=== PATIENT | female | born 1975 | race Caucasian/White ===

== ENCOUNTER 2018-09-24 15:03 | Inpatient (IN) ==
[2018-09-24 18:26] LABS: Basophils # 0.1 10*3/uL (0.0-0.2); Basophils % 0.9 % (0.0-0.8); Hemoglobin 12.9 GM/DL (12.0-16.0); Immature Granulocytes % 0.9 %; Immature Granulocytes Absolute 0.06 #; Lymphocytes # 1.1 10*3/uL (1.4-4.0); Lymphocytes % 15.8 % (21.3-54.2); Mean Corpuscular HGB Conc 32.3 GM/DL (32-36); Mean Corpuscular Volume 91.7 FL (87-102); Mean Platelet Volume 8.8 FL (9.6-12.0); Monocytes % 10.3 % (1.7-12.7); Neutrophils % 72.1 % (38.7-73.9); Platelet Count 475 T/CUMM (130-400); Red Blood Count 4.36 MC/CUMM (3.8-5.5); Red Cell Distribution Width 16.1 % (9.3-17.3); White Blood Count 6.7 T/CUMM (4-12)
[2018-09-24] MEDS ORDERED: ONDANSETRON 4 MG/2 ML VIAL ONE (18:30)
[2018-09-24] MEDS ORDERED: HYDROmorphone 2 MG/1 ML VIAL ONE (18:31)
[2018-09-24] MEDS ORDERED: ONDANSETRON 4 MG/2 ML VIAL IV STA (18:47)
[2018-09-24] MEDS ORDERED: HYDROmorphone 2 MG/1 ML VIAL IV STA (18:47)
[2018-09-24 18:48] LABS: Calcium 8.7 MG/DL (8.5-10.1); Osmolality,Calculated 273.5 MOS/KG (273-304)
[2018-09-24] MEDS ORDERED: LACTATED RINGERS 500 ML IV ONE (18:49)
[2018-09-24] MEDS ORDERED: ACETAMINOPHEN 325 MG TABLET PO PRN (20:08)
[2018-09-24] MEDS ORDERED: DOCUSATE SODIUM 100 MG CAPSULE PO PRN (20:08)
[2018-09-24 20:23] LABS: PT Patient Result 10.4 SECS
[2018-09-24] MEDS: SODIUM CHLORIDE 0.9% 1,000 ML IV SCH (20:30)
[2018-09-24] MEDS ORDERED: LORazepam 2 MG/1 ML VIAL IV PRN (20:49)
[2018-09-24] MEDS ORDERED: DEXTROSE 50% 25 GM/50 ML SYRINGE IV ONE (22:02)
[2018-09-24] MEDS ORDERED: DEXTROSE 50% 25 GM/50 ML VIAL IV ONE (22:07)
[2018-09-24] MEDS: POTASSIUM CHLORIDE RIDER 10 MEQ in PREMIX 1 EACH IV SCH (23:40)
[2018-09-24] MEDS: ENOXAPARIN 40 MG/0.4 ML SYRINGE SUBCUT SCH (23:41)
[2018-09-24] MEDS: PANTOPRAZOLE 40 MG VIAL IV SCH (23:41)
[2018-09-24] MEDS: MORPHINE 4 MG/1 ML VIAL IV PRN (23:42)
[2018-09-24] MEDS: ONDANSETRON 4 MG/2 ML VIAL IV PRN (23:45)
[2018-09-25] MEDS ORDERED: POTASSIUM CHLORIDE RIDER 10 MEQ in PREMIX 1 EACH IV SCH (03:30)
[2018-09-25] MEDS: POTASSIUM CHLORIDE RIDER 10 MEQ in PREMIX 1 EACH IV SCH (03:48)
[2018-09-25 03:56] LABS: Basophils # 0.1 10*3/uL (0.0-0.2); Hematocrit 37.1 VOL% (35.7-47.0); Hemoglobin 11.8 GM/DL (12.0-16.0); Immature Granulocytes % 0.7 %; Immature Granulocytes Absolute 0.05 #; Lymphocytes # 1.3 10*3/uL (1.4-4.0); Lymphocytes % 17.9 % (21.3-54.2); Mean Corpuscular HGB Conc 31.8 GM/DL (32-36); Mean Corpuscular Volume 93.2 FL (87-102); Mean Platelet Volume 9.5 FL (9.6-12.0); Monocytes % 10.7 % (1.7-12.7); Neutrophils % 69.7 % (38.7-73.9); Platelet Count 447 T/CUMM (130-400); Red Blood Count 3.98 MC/CUMM (3.8-5.5); Red Cell Distribution Width 16.3 % (9.3-17.3); White Blood Count 7.2 T/CUMM (4-12)
[2018-09-25] MEDS: MORPHINE 4 MG/1 ML VIAL IV PRN (03:56)
[2018-09-25 04:17] LABS: Alanine Aminotransferase 20 U/L (13-56); Albumin 2.5 G/DL (3.4-5.0); Alkaline Phosphatase 60 U/L (45-117); Aspartate Amino Transferase 22 U/L (0-37); Bilirubin,Total < 0.39 MG/DL (0.2-1.0); Blood Urea Nitrogen 10 MG/DL (7-18); Calcium 7.9 MG/DL (8.5-10.1); Glucose 63 MG/DL (74-106); Osmolality,Calculated 277.3 MOS/KG (273-304); Total Protein 5.7 G/DL (6.4-8.3)
[2018-09-25] MEDS: SODIUM CHLORIDE 0.9% 1,000 ML IV SCH ×3 (06:23→19:48)
[2018-09-25] MEDS: ONDANSETRON 4 MG/2 ML VIAL IV PRN ×4 (08:09→23:28)
[2018-09-25] MEDS: PANTOPRAZOLE 40 MG VIAL IV SCH ×2 (08:26→20:47)
[2018-09-25] MEDS ORDERED: fentaNYL 12 MCG/HR PATCH TRANSDERM SCH (09:00)
[2018-09-25] MEDS ORDERED: PANTOPRAZOLE 40 MG TABLET PO SCH (09:00)
[2018-09-25 10:24] LABS: Eosinophils,Pleural Fluid 2 %; Lymphocytes,Pleural Fluid 57 %; Monocytes,Pleural Fluid 11 %; Neutrophils,Pleural Fluid 30 %
[2018-09-25 10:25] LABS: RBC,Pleural Fluid 485 T/CUMM
[2018-09-25] MEDS: HYDROmorphone 2 MG/1 ML VIAL IV PRN ×6 (10:29→23:10)
[2018-09-25 22:16] LABS: Apearance,Urine CLEAR (Clear); Bilirubin,Urine Negative (Negative); Blood, Urine Negative (Negative); Glucose,Urine (UA) Negative (Negative); Hyaline Casts,Urine 5 /LPF (0-3); Ketones,Urine 80 mg/dL (Negative); Mucus,Urine Many /LPF (Occasional); Nitrite,Urine Negative (Negative); Protein,Urine Negative; Urine Color Yellow (Yellow); Urine Specific Gravity 1.019 (1.001-1.035); Urine Urobilinogen < 2.0 EU/DL (0.2-1.0); WBC,Urine 1 /HPF (0-6)
[2018-09-26] MEDS: HYDROmorphone 2 MG/1 ML VIAL IV PRN ×5 (01:50→19:41)
[2018-09-26] MEDS: ONDANSETRON 4 MG/2 ML VIAL IV PRN ×3 (04:23→19:41)
[2018-09-26] MEDS: LACTATED RINGERS 1,000 ML IV SCH (08:35)
[2018-09-26] MEDS: PANTOPRAZOLE 40 MG VIAL IV SCH ×2 (08:37→20:41)
[2018-09-26] MEDS ORDERED: PROPOFOL 200 MG/20 ML VIAL IV ONE (09:00)
[2018-09-26] MEDS ORDERED: LIDOCAINE 2% 5 ML VIAL ONE (09:00)
[2018-09-26] MEDS: fentaNYL 25 MCG/HR PATCH TRANSDERM SCH (10:44)
[2018-09-26] MEDS: SUCRALFATE 1 GM/10 ML UDCUP PO SCH ×3 (11:54→20:41)
[2018-09-26] MEDS: SODIUM CHLORIDE 0.9% 1,000 ML IV SCH ×2 (13:31→13:59)
[2018-09-27] MEDS: ONDANSETRON 4 MG/2 ML VIAL IV PRN (00:27)
[2018-09-27] MEDS: HYDROmorphone 2 MG/1 ML VIAL IV PRN ×4 (00:28→21:16)
[2018-09-27 05:55] LABS: Basophils # 0.1 10*3/uL (0.0-0.2); Basophils % 0.5 % (0.0-0.8); Hematocrit 33.7 VOL% (35.7-47.0); Hemoglobin 10.6 GM/DL (12.0-16.0); Immature Granulocytes % 0.6 %; Immature Granulocytes Absolute 0.06 #; Lymphocytes # 1.2 10*3/uL (1.4-4.0); Lymphocytes % 12.3 % (21.3-54.2); Mean Corpuscular HGB Conc 31.5 GM/DL (32-36); Mean Corpuscular Volume 93.6 FL (87-102); Mean Platelet Volume 9.9 FL (9.6-12.0); Monocytes % 9.8 % (1.7-12.7); Neutrophils % 76.8 % (38.7-73.9); Platelet Count 405 T/CUMM (130-400); Red Cell Distribution Width 16.1 % (9.3-17.3); White Blood Count 9.6 T/CUMM (4-12)
[2018-09-27 06:15] LABS: Calcium 6.5 MG/DL (8.5-10.1); Osmolality,Calculated 276.3 MOS/KG (273-304)
[2018-09-27] MEDS: SUCRALFATE 1 GM/10 ML UDCUP PO SCH ×4 (07:46→21:16)
[2018-09-27] MEDS: SODIUM CHLORIDE 0.9% 1,000 ML IV SCH (10:09)
[2018-09-27] MEDS: LACTATED RINGERS 1,000 ML IV SCH (10:10)
[2018-09-27] MEDS ORDERED: POTASSIUM CHLORIDE 20 MEQ/15 ML UDCUP PO ONE (10:10)
[2018-09-27] MEDS ORDERED: MEROPENEM 500 MG in SODIUM CHLORIDE 0.9% 100 ML IV SCH (10:30)
[2018-09-27] MEDS: HYDROmorphone 2 MG TABLET PO PRN ×2 (11:28→16:57)
[2018-09-27] MEDS: PANTOPRAZOLE 40 MG VIAL IV SCH ×2 (11:31→21:15)
[2018-09-27] MEDS: ENOXAPARIN 40 MG/0.4 ML SYRINGE SUBCUT SCH (21:14)
[2018-09-28] MEDS: HYDROmorphone 2 MG TABLET PO PRN ×3 (00:05→08:36)
[2018-09-28 04:57] LABS: Basophils # 0.1 10*3/uL (0.0-0.2); Basophils % 0.5 % (0.0-0.8); Hematocrit 35.7 VOL% (35.7-47.0); Hemoglobin 11.2 GM/DL (12.0-16.0); Immature Granulocytes % 0.8 %; Immature Granulocytes Absolute 0.08 #; Lymphocytes # 1.3 10*3/uL (1.4-4.0); Lymphocytes % 12.8 % (21.3-54.2); Mean Corpuscular HGB Conc 31.4 GM/DL (32-36); Mean Corpuscular Volume 92.5 FL (87-102); Mean Platelet Volume 9.5 FL (9.6-12.0); Monocytes % 7.6 % (1.7-12.7); Neutrophils % 78.3 % (38.7-73.9); Platelet Count 426 T/CUMM (130-400); Red Blood Count 3.86 MC/CUMM (3.8-5.5); Red Cell Distribution Width 16.1 % (9.3-17.3); White Blood Count 10.1 T/CUMM (4-12)
[2018-09-28 05:28] LABS: Calcium 7.6 MG/DL (8.5-10.1); Osmolality,Calculated 272.5 MOS/KG (273-304)
[2018-09-28] MEDS: PANTOPRAZOLE 40 MG VIAL IV SCH ×2 (08:36→20:58)
[2018-09-28] MEDS: SUCRALFATE 1 GM/10 ML UDCUP PO SCH ×4 (08:36→20:53)
[2018-09-28] MEDS ORDERED: METHYLNALTREXONE 12 MG/0.6 ML VIAL SUBCUT ONE (11:43)
[2018-09-28] MEDS: FUROSEMIDE 40 MG TABLET PO SCH (12:47)
[2018-09-28] MEDS: HYDROmorphone 2 MG/1 ML VIAL IV PRN ×3 (16:29→20:53)
[2018-09-28] MEDS: ENOXAPARIN 40 MG/0.4 ML SYRINGE SUBCUT SCH (20:53)
[2018-09-28] MEDS: MEMANTINE 5 MG TABLET PO SCH (21:02)
[2018-09-29] MEDS: HYDROmorphone 2 MG/1 ML VIAL IV PRN ×6 (01:24→21:45)
[2018-09-29] MEDS: ANASTROZOLE 1 MG TABLET PO SCH (08:35)
[2018-09-29] MEDS: MEMANTINE 5 MG TABLET PO SCH ×2 (08:35→23:26)
[2018-09-29] MEDS: SUCRALFATE 1 GM/10 ML UDCUP PO SCH ×4 (08:35→23:26)
[2018-09-29] MEDS: fentaNYL 25 MCG/HR PATCH TRANSDERM SCH (08:36)
[2018-09-29] MEDS: FUROSEMIDE 40 MG TABLET PO SCH (08:36)
[2018-09-29] MEDS: PANTOPRAZOLE 40 MG VIAL IV SCH ×2 (08:41→19:59)
[2018-09-29] MEDS: ONDANSETRON 4 MG/2 ML VIAL IV PRN (19:53)
[2018-09-29] MEDS: ENOXAPARIN 40 MG/0.4 ML SYRINGE SUBCUT SCH (19:59)
[2018-09-30] MEDS: HYDROmorphone 2 MG/1 ML VIAL IV PRN ×7 (01:46→22:39)
[2018-09-30] MEDS: ONDANSETRON 4 MG/2 ML VIAL IV PRN ×2 (01:48→17:55)
[2018-09-30] MEDS ORDERED: MORPHINE 4 MG/1 ML VIAL IV PRN (08:31)
[2018-09-30] MEDS: MEMANTINE 5 MG TABLET PO SCH ×2 (08:44→20:22)
[2018-09-30] MEDS: ANASTROZOLE 1 MG TABLET PO SCH (08:44)
[2018-09-30] MEDS: PANTOPRAZOLE 40 MG VIAL IV SCH ×2 (08:44→20:22)
[2018-09-30] MEDS: SUCRALFATE 1 GM/10 ML UDCUP PO SCH ×4 (08:44→20:21)
[2018-09-30] MEDS: ALBUTEROL/IPRATROPIUM 3 ML NEB RESP TX PRN ×2 (08:45→12:45)
[2018-09-30] MEDS: FUROSEMIDE 40 MG/4 ML VIAL IV SCH (08:58)
[2018-09-30 10:18] LABS: Basophils # 0.1 10*3/uL (0.0-0.2); Basophils % 0.5 % (0.0-0.8); Hematocrit 37.9 VOL% (35.7-47.0); Hemoglobin 11.8 GM/DL (12.0-16.0); Immature Granulocytes % 0.9 %; Immature Granulocytes Absolute 0.13 #; Lymphocytes % 6.4 % (21.3-54.2); Mean Corpuscular HGB Conc 31.1 GM/DL (32-36); Mean Corpuscular Volume 92.9 FL (87-102); Mean Platelet Volume 9.4 FL (9.6-12.0); Monocytes % 4.8 % (1.7-12.7); Neutrophils % 87.4 % (38.7-73.9); Platelet Count 448 T/CUMM (130-400); Red Blood Count 4.08 MC/CUMM (3.8-5.5); Red Cell Distribution Width 16.3 % (9.3-17.3); White Blood Count 15.1 T/CUMM (4-12)
[2018-09-30 10:43] LABS: Calcium 7.5 MG/DL (8.5-10.1); Osmolality,Calculated 277.3 MOS/KG (273-304)
[2018-09-30] MEDS: SODIUM CHLORIDE 0.9% 1,000 ML IV SCH (11:22)
[2018-09-30] MEDS: cefTRIAXone 1,000 MG in SYRINGE 1 EACH IV SCH (11:22)
[2018-09-30] MEDS: CLINDAMYCIN INJ 600 MG in PREMIX 1 EACH IV SCH ×2 (11:32→17:25)
[2018-09-30] MEDS: ENOXAPARIN 40 MG/0.4 ML SYRINGE SUBCUT SCH (20:22)
[2018-10-01] MEDS: HYDROmorphone 2 MG/1 ML VIAL IV PRN ×8 (00:28→21:43)
[2018-10-01] MEDS: CLINDAMYCIN INJ 600 MG in PREMIX 1 EACH IV SCH ×3 (00:34→16:52)
[2018-10-01] MEDS: clonazePAM 0.5 MG TABLET PO PRN ×2 (03:11→23:11)
[2018-10-01] MEDS: SODIUM CHLORIDE 0.9% 1,000 ML IV SCH ×2 (06:32→10:04)
[2018-10-01] MEDS: LACTULOSE 20 GM/30 ML UDCUP PO PRN (09:42)
[2018-10-01] MEDS: SUCRALFATE 1 GM/10 ML UDCUP PO SCH ×5 (09:43→21:39)
[2018-10-01] MEDS: MEMANTINE 5 MG TABLET PO SCH ×3 (09:43→21:40)
[2018-10-01] MEDS: ANASTROZOLE 1 MG TABLET PO SCH (09:43)
[2018-10-01] MEDS: FUROSEMIDE 40 MG/4 ML VIAL IV SCH (10:01)
[2018-10-01] MEDS: PANTOPRAZOLE 40 MG VIAL IV SCH ×2 (10:04→21:38)
[2018-10-01] MEDS: cefTRIAXone 1,000 MG in SYRINGE 1 EACH IV SCH (10:05)
[2018-10-01] MEDS ORDERED: POTASSIUM CHLORIDE 20 MEQ/15 ML UDCUP PO ONE (13:52)
[2018-10-01] MEDS: ENOXAPARIN 40 MG/0.4 ML SYRINGE SUBCUT SCH (21:38)
[2018-10-01] MEDS: ALBUTEROL/IPRATROPIUM 3 ML NEB RESP TX PRN (21:51)
[2018-10-02] MEDS: CLINDAMYCIN INJ 600 MG in PREMIX 1 EACH IV SCH ×3 (01:49→16:42)
[2018-10-02] MEDS: HYDROmorphone 2 MG/1 ML VIAL IV PRN ×7 (01:55→20:40)
[2018-10-02] MEDS: SODIUM CHLORIDE 0.9% 1,000 ML IV SCH (05:28)
[2018-10-02] MEDS ORDERED: ZALEPLON 5 MG CAPSULE PO PRN (08:17)
[2018-10-02] MEDS: SUCRALFATE 1 GM/10 ML UDCUP PO SCH ×4 (08:29→20:47)
[2018-10-02] MEDS: MEMANTINE 5 MG TABLET PO SCH ×2 (08:30→20:46)
[2018-10-02] MEDS: ANASTROZOLE 1 MG TABLET PO SCH (08:30)
[2018-10-02] MEDS: PANTOPRAZOLE 40 MG VIAL IV SCH ×2 (08:30→20:47)
[2018-10-02] MEDS: FUROSEMIDE 40 MG/4 ML VIAL IV SCH (08:30)
[2018-10-02] MEDS ORDERED: ENOXAPARIN 40 MG/0.4 ML SYRINGE SUBCUT SCH (08:59)
[2018-10-02] MEDS ORDERED: METHYLNALTREXONE 12 MG/0.6 ML VIAL SUBCUT ONE (09:00)
[2018-10-02] MEDS: cefTRIAXone 1,000 MG in SYRINGE 1 EACH IV SCH (09:36)
[2018-10-02] MEDS: buPROPion 75 MG TABLET PO SCH ×2 (09:43→20:43)
[2018-10-02] MEDS: fentaNYL 50 MCG/HR PATCH TRANSDERM SCH (09:43)
[2018-10-02] MEDS: SODIUM PHOSPHATE ENEMA 133 ML BOTTLE RECTAL PRN (13:52)
[2018-10-02] MEDS: LACTULOSE 20 GM/30 ML UDCUP PO PRN (17:12)
[2018-10-02] MEDS: ALBUTEROL/IPRATROPIUM 3 ML NEB RESP TX PRN (18:12)
[2018-10-02] MEDS: ENOXAPARIN 30 MG/0.3 ML SYRINGE SUBCUT SCH (20:47)
[2018-10-02] MEDS: clonazePAM 0.5 MG TABLET PO PRN (21:13)
[2018-10-03] MEDS: HYDROmorphone 2 MG/1 ML VIAL IV PRN ×3 (00:48→07:43)
[2018-10-03] MEDS: CLINDAMYCIN INJ 600 MG in PREMIX 1 EACH IV SCH ×3 (00:48→22:09)
[2018-10-03 05:10] LABS: Basophils % 0.2 % (0.0-0.8); Hematocrit 34.7 VOL% (35.7-47.0); Hemoglobin 10.8 GM/DL (12.0-16.0); Immature Granulocytes % 0.7 %; Immature Granulocytes Absolute 0.13 #; Lymphocytes # 0.7 10*3/uL (1.4-4.0); Lymphocytes % 3.6 % (21.3-54.2); Mean Corpuscular HGB Conc 31.1 GM/DL (32-36); Mean Corpuscular Volume 91.6 FL (87-102); Monocytes % 5.4 % (1.7-12.7); Neutrophils % 90.1 % (38.7-73.9); Platelet Count 448 T/CUMM (130-400); Red Blood Count 3.79 MC/CUMM (3.8-5.5); Red Cell Distribution Width 16.2 % (9.3-17.3)
[2018-10-03 05:35] LABS: Anisocytosis Slight; Microcytosis Slight; Platelet Estimate Normal; Segmented Neutrophils 95 % (50-85); Target Cells Slight; Total Cells Counted 100
[2018-10-03 05:41] LABS: Calcium 7.4 MG/DL (8.5-10.1); Osmolality,Calculated 287.6 MOS/KG (273-304)
[2018-10-03 05:45] LABS: Albumin 2.3 G/DL (3.4-5.0); Bilirubin,Total 0.6 MG/DL (0.2-1.0); Calcium 7.5 MG/DL (8.5-10.1); Osmolality,Calculated 287.6 MOS/KG (273-304); Total Protein 6.3 G/DL (6.4-8.3)
[2018-10-03] MEDS ORDERED: POTASSIUM CHLORIDE RIDER 100 ML IV ONE (06:15)
[2018-10-03] MEDS: POTASSIUM CHLORIDE RIDER 20 MEQ in PREMIX 1 EACH IV PRN ×3 (06:21→13:09)
[2018-10-03] MEDS ORDERED: POTASSIUM CHLORIDE 20 MEQ TABLET PO ONE (08:01)
[2018-10-03] MEDS ORDERED: POTASSIUM CHLORIDE 20 MEQ/15 ML UDCUP PO ONE (09:35)
[2018-10-03] MEDS: SUCRALFATE 1 GM/10 ML UDCUP PO SCH ×4 (10:58→20:37)
[2018-10-03] MEDS: cefTRIAXone 1,000 MG in SYRINGE 1 EACH IV SCH (11:01)
[2018-10-03] MEDS: MEMANTINE 5 MG TABLET PO SCH ×2 (11:02→20:38)
[2018-10-03] MEDS: FUROSEMIDE 40 MG TABLET PO SCH (11:03)
[2018-10-03] MEDS: buPROPion 75 MG TABLET PO SCH ×2 (11:03→20:38)
[2018-10-03] MEDS: LINACLOTIDE 145 MCG CAPSULE PO SCH (11:04)
[2018-10-03] MEDS: PANTOPRAZOLE 40 MG TABLET PO SCH (11:14)
[2018-10-03] MEDS: HYDROmorphone 2 MG TABLET PO PRN ×2 (13:06→20:38)
[2018-10-03] MEDS ORDERED: METHYLNALTREXONE 12 MG/0.6 ML VIAL SUBCUT ONE (15:00)
[2018-10-03] MEDS: SODIUM PHOSPHATE ENEMA 133 ML BOTTLE RECTAL PRN (15:10)
[2018-10-03] MEDS: ENOXAPARIN 30 MG/0.3 ML SYRINGE SUBCUT SCH (20:37)
[2018-10-04] MEDS: HYDROmorphone 2 MG TABLET PO PRN ×3 (02:20→20:33)
[2018-10-04] MEDS: POTASSIUM CHLORIDE RIDER 10 MEQ in PREMIX 1 EACH IV PRN (02:35)
[2018-10-04] MEDS: POTASSIUM CHLORIDE RIDER 20 MEQ in PREMIX 1 EACH IV PRN ×2 (02:35→05:40)
[2018-10-04] MEDS: HYDROmorphone 2 MG/1 ML VIAL IV PRN ×3 (04:39→12:33)
[2018-10-04] MEDS: CLINDAMYCIN INJ 600 MG in PREMIX 1 EACH IV SCH ×3 (05:10→22:34)
[2018-10-04] MEDS ORDERED: DOCUSATE SODIUM 100 MG CAPSULE PO SCH (09:30)
[2018-10-04] MEDS: MEMANTINE 5 MG TABLET PO SCH ×2 (09:35→20:32)
[2018-10-04] MEDS: PANTOPRAZOLE 40 MG TABLET PO SCH (09:36)
[2018-10-04] MEDS: FUROSEMIDE 40 MG TABLET PO SCH (09:36)
[2018-10-04] MEDS: buPROPion 75 MG TABLET PO SCH ×2 (09:36→20:32)
[2018-10-04] MEDS: POTASSIUM CHLORIDE 20 MEQ TABLET PO SCH (09:36)
[2018-10-04] MEDS: SUCRALFATE 1 GM/10 ML UDCUP PO SCH ×4 (09:37→20:29)
[2018-10-04] MEDS: CHOLECALCIFEROL 5,000 UNIT TABLET PO SCH (09:44)
[2018-10-04] MEDS: POLYETHYLENE GLYCOL POWDER 17 GM PACK PO SCH (09:44)
[2018-10-04] MEDS: cefTRIAXone 1,000 MG in SYRINGE 1 EACH IV SCH (10:26)
[2018-10-04] MEDS: LINACLOTIDE 145 MCG CAPSULE PO SCH (18:01)
[2018-10-04] MEDS: ENOXAPARIN 30 MG/0.3 ML SYRINGE SUBCUT SCH (20:29)
[2018-10-05] MEDS: HYDROmorphone 2 MG/1 ML VIAL IV PRN (01:36)
[2018-10-05] MEDS: CLINDAMYCIN INJ 600 MG in PREMIX 1 EACH IV SCH ×3 (05:57→21:41)
[2018-10-05] MEDS: HYDROmorphone 2 MG TABLET PO PRN ×3 (07:25→19:41)
[2018-10-05] MEDS: fentaNYL 50 MCG/HR PATCH TRANSDERM SCH (09:27)
[2018-10-05] MEDS: POTASSIUM CHLORIDE 20 MEQ TABLET PO SCH (09:27)
[2018-10-05] MEDS: PANTOPRAZOLE 40 MG TABLET PO SCH (09:28)
[2018-10-05] MEDS: CHOLECALCIFEROL 5,000 UNIT TABLET PO SCH (09:28)
[2018-10-05] MEDS: buPROPion 75 MG TABLET PO SCH ×2 (09:28→20:12)
[2018-10-05] MEDS: FUROSEMIDE 40 MG TABLET PO SCH (09:28)
[2018-10-05] MEDS: POTASSIUM CHLORIDE RIDER 20 MEQ in PREMIX 1 EACH IV PRN ×2 (09:29→14:10)
[2018-10-05] MEDS: DOCUSATE SODIUM 100 MG/10 ML UDCUP PO SCH (09:29)
[2018-10-05] MEDS: clonazePAM 0.5 MG TABLET PO PRN (09:29)
[2018-10-05] MEDS: POTASSIUM CHLORIDE 20 MEQ/15 ML UDCUP PO SCH (09:30)
[2018-10-05] MEDS: MEMANTINE 5 MG TABLET PO SCH ×2 (09:32→20:12)
[2018-10-05 09:33] LABS: Calcium 7.5 MG/DL (8.5-10.1); Osmolality,Calculated 285.7 MOS/KG (273-304)
[2018-10-05] MEDS: LORazepam 2 MG/1 ML VIAL IV PRN ×2 (11:16→21:35)
[2018-10-05 12:00] LABS: Apearance,Urine CLOUDY (Clear); Bilirubin,Urine Negative (Negative); Blood, Urine Negative (Negative); Glucose,Urine (UA) Negative (Negative); Hyaline Casts,Urine 7 /LPF (0-3); Ketones,Urine 20 mg/dL (Negative); Mucus,Urine Many /LPF (Occasional); Nitrite,Urine Negative (Negative); Protein,Urine Negative; Squamous Epithelial Cell,Urine Occasional /HPF (0-10); Urine Color Yellow (Yellow); Urine Specific Gravity 1.015 (1.001-1.035); Urine Urobilinogen < 2.0 EU/DL (0.2-1.0); WBC,Urine 1 /HPF (0-6)
[2018-10-05] MEDS: SUCRALFATE 1 GM/10 ML UDCUP PO SCH ×4 (13:13→21:41)
[2018-10-05] MEDS: cefTRIAXone 1,000 MG in SYRINGE 1 EACH IV SCH (13:34)
[2018-10-05] MEDS: POLYETHYLENE GLYCOL POWDER 17 GM PACK PO SCH (13:36)
[2018-10-05] MEDS: LINACLOTIDE 145 MCG CAPSULE PO SCH (13:36)
[2018-10-05] MEDS: ENOXAPARIN 30 MG/0.3 ML SYRINGE SUBCUT SCH (20:12)
[2018-10-06] MEDS: LORazepam 2 MG/1 ML VIAL IV PRN ×3 (02:40→21:34)
[2018-10-06] MEDS ORDERED: HEPARIN LOCK FLUSH 500 UNIT/5 ML SYRINGE IV ONE (03:43)
[2018-10-06 05:15] LABS: Calcium 7.4 MG/DL (8.5-10.1); Osmolality,Calculated 277.3 MOS/KG (273-304)
[2018-10-06] MEDS: CLINDAMYCIN INJ 600 MG in PREMIX 1 EACH IV SCH ×3 (06:16→21:25)
[2018-10-06] MEDS: POTASSIUM CHLORIDE RIDER 20 MEQ in PREMIX 1 EACH IV PRN (06:41)
[2018-10-06] MEDS: buPROPion 75 MG TABLET PO SCH ×2 (11:51→21:23)
[2018-10-06] MEDS: MEMANTINE 5 MG TABLET PO SCH ×2 (11:51→21:24)
[2018-10-06] MEDS: HYDROmorphone 2 MG TABLET PO PRN ×2 (11:51→17:20)
[2018-10-06] MEDS: PANTOPRAZOLE 40 MG TABLET PO SCH (11:52)
[2018-10-06] MEDS: LINACLOTIDE 145 MCG CAPSULE PO SCH (11:52)
[2018-10-06] MEDS: DOCUSATE SODIUM 100 MG/10 ML UDCUP PO SCH (11:52)
[2018-10-06] MEDS: SUCRALFATE 1 GM/10 ML UDCUP PO SCH ×4 (11:52→21:25)
[2018-10-06] MEDS: FUROSEMIDE 40 MG TABLET PO SCH (11:52)
[2018-10-06] MEDS: POTASSIUM CHLORIDE 20 MEQ/15 ML UDCUP PO SCH (11:53)
[2018-10-06] MEDS: POTASSIUM CHLORIDE 20 MEQ TABLET PO SCH (11:53)
[2018-10-06] MEDS: POLYETHYLENE GLYCOL POWDER 17 GM PACK PO SCH (11:53)
[2018-10-06] MEDS: CHOLECALCIFEROL 5,000 UNIT TABLET PO SCH (11:54)
[2018-10-06] MEDS: cefTRIAXone 1,000 MG in SYRINGE 1 EACH IV SCH (14:58)
[2018-10-06] MEDS: HYDROmorphone 2 MG/1 ML VIAL IV PRN (19:32)
[2018-10-06] MEDS: ENOXAPARIN 30 MG/0.3 ML SYRINGE SUBCUT SCH (21:25)
[2018-10-07] MEDS: HYDROmorphone 2 MG/1 ML VIAL IV PRN ×5 (01:58→22:13)
[2018-10-07 03:36] LABS: Basophils % 0.1 % (0.0-0.8); Eosinophils % 0.3 % (0.00-10.9); Hematocrit 31.9 VOL% (35.7-47.0); Hemoglobin 10.2 GM/DL (12.0-16.0); Immature Granulocytes % 0.7 %; Immature Granulocytes Absolute 0.05 #; Lymphocytes # 0.5 10*3/uL (1.4-4.0); Lymphocytes % 6.9 % (21.3-54.2); Mean Corpuscular Volume 90.9 FL (87-102); Monocytes % 5.8 % (1.7-12.7); Neutrophils % 86.2 % (38.7-73.9); Platelet Count 382 T/CUMM (130-400); Red Blood Count 3.51 MC/CUMM (3.8-5.5); Red Cell Distribution Width 16.3 % (9.3-17.3); White Blood Count 7.4 T/CUMM (4-12)
[2018-10-07] MEDS: CLINDAMYCIN INJ 600 MG in PREMIX 1 EACH IV SCH (05:42)
[2018-10-07] MEDS: POTASSIUM CHLORIDE 20 MEQ/15 ML UDCUP PO SCH (08:44)
[2018-10-07] MEDS: SUCRALFATE 1 GM/10 ML UDCUP PO SCH ×4 (08:44→22:18)
[2018-10-07] MEDS: DOCUSATE SODIUM 100 MG/10 ML UDCUP PO SCH (08:44)
[2018-10-07] MEDS: POLYETHYLENE GLYCOL POWDER 17 GM PACK PO SCH (08:45)
[2018-10-07] MEDS: LINACLOTIDE 145 MCG CAPSULE PO SCH (08:51)
[2018-10-07] MEDS: POTASSIUM CHLORIDE 20 MEQ TABLET PO SCH (08:51)
[2018-10-07] MEDS: buPROPion 75 MG TABLET PO SCH ×2 (08:51→22:22)
[2018-10-07] MEDS: MEMANTINE 5 MG TABLET PO SCH ×2 (08:51→22:22)
[2018-10-07] MEDS: FUROSEMIDE 40 MG TABLET PO SCH (08:51)
[2018-10-07] MEDS: CHOLECALCIFEROL 5,000 UNIT TABLET PO SCH (09:37)
[2018-10-07] MEDS: PANTOPRAZOLE 40 MG TABLET PO SCH (09:38)
[2018-10-07] MEDS: LORazepam 2 MG/1 ML VIAL IV PRN (22:13)
[2018-10-07] MEDS: ENOXAPARIN 30 MG/0.3 ML SYRINGE SUBCUT SCH (22:19)
[2018-10-08] MEDS: HYDROmorphone 2 MG/1 ML VIAL IV PRN ×7 (00:26→21:27)
[2018-10-08] MEDS: POLYETHYLENE GLYCOL POWDER 17 GM PACK PO SCH (08:21)
[2018-10-08] MEDS: DOCUSATE SODIUM 100 MG/10 ML UDCUP PO SCH (08:21)
[2018-10-08] MEDS: SUCRALFATE 1 GM/10 ML UDCUP PO SCH ×4 (08:22→21:21)
[2018-10-08] MEDS: fentaNYL 50 MCG/HR PATCH TRANSDERM SCH (08:22)
[2018-10-08] MEDS: POTASSIUM CHLORIDE 20 MEQ/15 ML UDCUP PO SCH (08:22)
[2018-10-08] MEDS: CHOLECALCIFEROL 5,000 UNIT TABLET PO SCH (08:24)
[2018-10-08] MEDS: PANTOPRAZOLE 40 MG TABLET PO SCH (08:24)
[2018-10-08] MEDS: buPROPion 75 MG TABLET PO SCH ×2 (08:25→21:29)
[2018-10-08] MEDS: MEMANTINE 5 MG TABLET PO SCH ×2 (08:25→21:29)
[2018-10-08] MEDS: FUROSEMIDE 40 MG TABLET PO SCH (08:25)
[2018-10-08] MEDS: POTASSIUM CHLORIDE 20 MEQ TABLET PO SCH (08:25)
[2018-10-08] MEDS: LINACLOTIDE 145 MCG CAPSULE PO SCH (08:26)
[2018-10-08] MEDS: ENOXAPARIN 30 MG/0.3 ML SYRINGE SUBCUT SCH (21:21)
[2018-10-08] MEDS: LORazepam 2 MG/1 ML VIAL IV PRN (21:23)
[2018-10-09] MEDS: HYDROmorphone 2 MG/1 ML VIAL IV PRN ×5 (02:24→22:39)
[2018-10-09] MEDS: HYDROmorphone 2 MG TABLET PO PRN ×2 (09:59→14:13)
[2018-10-09] MEDS: POTASSIUM CHLORIDE 20 MEQ/15 ML UDCUP PO SCH (10:00)
[2018-10-09] MEDS: CHOLECALCIFEROL 5,000 UNIT TABLET PO SCH (10:01)
[2018-10-09] MEDS: buPROPion 75 MG TABLET PO SCH ×2 (10:01→20:18)
[2018-10-09] MEDS: SUCRALFATE 1 GM/10 ML UDCUP PO SCH ×4 (10:01→20:23)
[2018-10-09] MEDS: DOCUSATE SODIUM 100 MG/10 ML UDCUP PO SCH (10:01)
[2018-10-09] MEDS: PANTOPRAZOLE 40 MG TABLET PO SCH (10:02)
[2018-10-09] MEDS: MEMANTINE 5 MG TABLET PO SCH ×2 (10:02→20:18)
[2018-10-09] MEDS: FUROSEMIDE 40 MG TABLET PO SCH (10:06)
[2018-10-09] MEDS: fentaNYL 75 MCG/HR PATCH TRANSDERM SCH (14:13)
[2018-10-09] MEDS: POLYETHYLENE GLYCOL POWDER 17 GM PACK PO SCH (15:12)
[2018-10-09] MEDS: LINACLOTIDE 145 MCG CAPSULE PO SCH (15:12)
[2018-10-09] MEDS: ENOXAPARIN 30 MG/0.3 ML SYRINGE SUBCUT SCH (20:18)
[2018-10-09] MEDS: LORazepam 2 MG/1 ML VIAL IV PRN (22:33)
[2018-10-10] MEDS: HYDROmorphone 2 MG/1 ML VIAL IV PRN ×7 (05:00→23:33)
[2018-10-10] MEDS: POTASSIUM CHLORIDE 20 MEQ TABLET PO SCH (07:51)
[2018-10-10] MEDS: SUCRALFATE 1 GM/10 ML UDCUP PO SCH ×4 (08:07→20:39)
[2018-10-10] MEDS: POTASSIUM CHLORIDE 20 MEQ/15 ML UDCUP PO SCH (08:07)
[2018-10-10] MEDS: LINACLOTIDE 145 MCG CAPSULE PO SCH (08:08)
[2018-10-10] MEDS: CHOLECALCIFEROL 5,000 UNIT TABLET PO SCH (08:11)
[2018-10-10] MEDS: MEMANTINE 5 MG TABLET PO SCH ×2 (08:11→20:39)
[2018-10-10] MEDS: buPROPion 75 MG TABLET PO SCH ×2 (08:12→20:39)
[2018-10-10] MEDS: FUROSEMIDE 40 MG TABLET PO SCH (08:12)
[2018-10-10] MEDS: PANTOPRAZOLE 40 MG TABLET PO SCH (08:12)
[2018-10-10] MEDS: POLYETHYLENE GLYCOL POWDER 17 GM PACK PO SCH (08:14)
[2018-10-10] MEDS: DOCUSATE SODIUM 100 MG/10 ML UDCUP PO SCH (08:14)
[2018-10-10] MEDS: NYSTATIN 500,000 UNIT/5 ML UDCUP SWISH/SWAL SCH ×3 (13:46→20:40)
[2018-10-10] MEDS: POTASSIUM CHLORIDE RIDER 10 MEQ in PREMIX 1 EACH IV PRN ×4 (16:56→23:39)
[2018-10-10] MEDS: ENOXAPARIN 30 MG/0.3 ML SYRINGE SUBCUT SCH (20:39)
[2018-10-10] MEDS: LORazepam 2 MG/1 ML VIAL IV PRN (23:32)
[2018-10-11] MEDS: HYDROmorphone 2 MG/1 ML VIAL IV PRN ×5 (04:12→21:27)
[2018-10-11 05:25] LABS: Basophils % 0.3 % (0.0-0.8); Eosinophils # 0.1 10*3/uL (0.0-0.87); Eosinophils % 0.9 % (0.00-10.9); Hematocrit 34.6 VOL% (35.7-47.0); Hemoglobin 10.7 GM/DL (12.0-16.0); Immature Granulocytes % 1.3 %; Lymphocytes # 0.4 10*3/uL (1.4-4.0); Lymphocytes % 5.7 % (21.3-54.2); Mean Corpuscular HGB Conc 30.9 GM/DL (32-36); Mean Corpuscular Volume 92.8 FL (87-102); Mean Platelet Volume 10.2 FL (9.6-12.0); Monocytes % 7.2 % (1.7-12.7); Neutrophils % 84.6 % (38.7-73.9); Platelet Count 393 T/CUMM (130-400); Red Blood Count 3.73 MC/CUMM (3.8-5.5); Red Cell Distribution Width 16.1 % (9.3-17.3); White Blood Count 7.5 T/CUMM (4-12)
[2018-10-11 06:03] LABS: Alanine Aminotransferase 22 U/L (13-56); Alkaline Phosphatase 60 U/L (45-117); Aspartate Amino Transferase 27 U/L (0-37); Bilirubin,Total < 0.39 MG/DL (0.2-1.0); Blood Urea Nitrogen 7 MG/DL (7-18); Calcium 7.8 MG/DL (8.5-10.1); Glucose 72 MG/DL (74-106); Osmolality,Calculated 269.8 MOS/KG (273-304); Total Protein 5.8 G/DL (6.4-8.3)
[2018-10-11] MEDS: NYSTATIN 500,000 UNIT/5 ML UDCUP SWISH/SWAL SCH ×4 (08:37→18:24)
[2018-10-11] MEDS: SUCRALFATE 1 GM/10 ML UDCUP PO SCH ×4 (08:37→18:24)
[2018-10-11] MEDS: DOCUSATE SODIUM 100 MG/10 ML UDCUP PO SCH ×2 (08:37→10:19)
[2018-10-11] MEDS: POTASSIUM CHLORIDE 20 MEQ/15 ML UDCUP PO SCH ×2 (08:38→10:20)
[2018-10-11] MEDS: POLYETHYLENE GLYCOL POWDER 17 GM PACK PO SCH (08:38)
[2018-10-11] MEDS: MEMANTINE 5 MG TABLET PO SCH ×2 (08:39→21:11)
[2018-10-11] MEDS: FUROSEMIDE 40 MG TABLET PO SCH (08:39)
[2018-10-11] MEDS: buPROPion 75 MG TABLET PO SCH ×2 (08:39→21:11)
[2018-10-11] MEDS: CHOLECALCIFEROL 5,000 UNIT TABLET PO SCH (08:39)
[2018-10-11] MEDS: PANTOPRAZOLE 40 MG TABLET PO SCH (08:39)
[2018-10-11] MEDS: LINACLOTIDE 145 MCG CAPSULE PO SCH (08:39)
[2018-10-11] MEDS: LORazepam 2 MG/1 ML VIAL IV PRN (13:35)
[2018-10-11] MEDS: ENOXAPARIN 30 MG/0.3 ML SYRINGE SUBCUT SCH (21:09)
[2018-10-12] MEDS: HYDROmorphone 2 MG/1 ML VIAL IV PRN ×5 (01:57→18:34)
[2018-10-12] MEDS ORDERED: HEPARIN LOCK FLUSH 500 UNIT/5 ML SYRINGE IV ONE (03:51)
[2018-10-12 07:24] LABS: Basophils % 0.3 % (0.0-0.8); Eosinophils % 0.7 % (0.00-10.9); Hematocrit 37.4 VOL% (35.7-47.0); Hemoglobin 11.3 GM/DL (12.0-16.0); Immature Granulocytes Absolute 0.06 #; Lymphocytes # 0.4 10*3/uL (1.4-4.0); Lymphocytes % 7.2 % (21.3-54.2); Mean Corpuscular HGB Conc 30.2 GM/DL (32-36); Mean Corpuscular Volume 92.8 FL (87-102); Mean Platelet Volume 9.3 FL (9.6-12.0); Monocytes % 7.6 % (1.7-12.7); Neutrophils % 83.2 % (38.7-73.9); Platelet Count 381 T/CUMM (130-400); Red Blood Count 4.03 MC/CUMM (3.8-5.5); Red Cell Distribution Width 15.9 % (9.3-17.3); White Blood Count 5.8 T/CUMM (4-12)
[2018-10-12 07:59] LABS: Calcium 7.9 MG/DL (8.5-10.1); Osmolality,Calculated 272.5 MOS/KG (273-304)
[2018-10-12] MEDS: LINACLOTIDE 145 MCG CAPSULE PO SCH (09:07)
[2018-10-12] MEDS: fentaNYL 75 MCG/HR PATCH TRANSDERM SCH (09:08)
[2018-10-12] MEDS: CHOLECALCIFEROL 5,000 UNIT TABLET PO SCH (09:08)
[2018-10-12] MEDS: FUROSEMIDE 40 MG TABLET PO SCH (09:08)
[2018-10-12] MEDS: buPROPion 75 MG TABLET PO SCH ×2 (09:08→20:57)
[2018-10-12] MEDS: MEMANTINE 5 MG TABLET PO SCH ×2 (09:08→20:57)
[2018-10-12] MEDS: PANTOPRAZOLE 40 MG TABLET PO SCH (09:08)
[2018-10-12] MEDS: POTASSIUM CHLORIDE 20 MEQ/15 ML UDCUP PO SCH (10:08)
[2018-10-12] MEDS: LORazepam 2 MG/1 ML VIAL IV PRN ×2 (11:34→23:39)
[2018-10-12] MEDS: ENOXAPARIN 30 MG/0.3 ML SYRINGE SUBCUT SCH (20:57)
[2018-10-13] MEDS: HYDROmorphone 2 MG/1 ML VIAL IV PRN ×2 (04:59→10:53)
[2018-10-13 06:48] LABS: Basophils % 0.3 % (0.0-0.8); Eosinophils % 0.3 % (0.00-10.9); Hematocrit 34.8 VOL% (35.7-47.0); Hemoglobin 11.2 GM/DL (12.0-16.0); Immature Granulocytes % 1.1 %; Immature Granulocytes Absolute 0.07 #; Lymphocytes # 0.4 10*3/uL (1.4-4.0); Lymphocytes % 5.5 % (21.3-54.2); Mean Corpuscular HGB Conc 32.2 GM/DL (32-36); Mean Corpuscular Volume 89.9 FL (87-102); Mean Platelet Volume 9.7 FL (9.6-12.0); Monocytes % 8.7 % (1.7-12.7); Neutrophils % 84.1 % (38.7-73.9); Platelet Count 397 T/CUMM (130-400); Red Blood Count 3.87 MC/CUMM (3.8-5.5); White Blood Count 6.3 T/CUMM (4-12)
[2018-10-13 07:23] LABS: Osmolality,Calculated 273.7 MOS/KG (273-304)
[2018-10-13] MEDS: LINACLOTIDE 145 MCG CAPSULE PO SCH (09:52)
[2018-10-13] MEDS: POTASSIUM CHLORIDE 20 MEQ/15 ML UDCUP PO SCH (09:52)
[2018-10-13] MEDS: MEMANTINE 5 MG TABLET PO SCH ×2 (09:53→21:13)
[2018-10-13] MEDS: buPROPion 75 MG TABLET PO SCH ×2 (09:53→21:13)
[2018-10-13] MEDS: FUROSEMIDE 40 MG TABLET PO SCH (09:53)
[2018-10-13] MEDS: CHOLECALCIFEROL 5,000 UNIT TABLET PO SCH (09:53)
[2018-10-13] MEDS: PANTOPRAZOLE 40 MG TABLET PO SCH (09:53)
[2018-10-13] MEDS: ENOXAPARIN 30 MG/0.3 ML SYRINGE SUBCUT SCH (21:13)
[2018-10-13] MEDS: LORazepam 2 MG/1 ML VIAL IV PRN (22:06)
[2018-10-14] MEDS: HYDROmorphone 2 MG/1 ML VIAL IV PRN ×5 (02:45→20:26)
[2018-10-14] MEDS: LINACLOTIDE 145 MCG CAPSULE PO SCH (09:38)
[2018-10-14] MEDS: CHOLECALCIFEROL 5,000 UNIT TABLET PO SCH (09:40)
[2018-10-14] MEDS: MEMANTINE 5 MG TABLET PO SCH ×2 (09:40→20:24)
[2018-10-14] MEDS: PANTOPRAZOLE 40 MG TABLET PO SCH (09:41)
[2018-10-14] MEDS: buPROPion 75 MG TABLET PO SCH ×2 (09:41→20:24)
[2018-10-14] MEDS: POTASSIUM CHLORIDE 20 MEQ/15 ML UDCUP PO SCH (09:41)
[2018-10-14] MEDS: FUROSEMIDE 40 MG TABLET PO SCH (09:41)
[2018-10-14] MEDS: POTASSIUM CHLORIDE RIDER 20 MEQ in PREMIX 1 EACH IV PRN (09:54)
[2018-10-14] MEDS: POTASSIUM CHLORIDE RIDER 10 MEQ in PREMIX 1 EACH IV PRN (12:33)
[2018-10-14] MEDS: ENOXAPARIN 30 MG/0.3 ML SYRINGE SUBCUT SCH (20:24)
[2018-10-14] MEDS: LORazepam 2 MG/1 ML VIAL IV PRN (22:32)
[2018-10-15] MEDS: HYDROmorphone 2 MG/1 ML VIAL IV PRN ×4 (03:26→20:21)
[2018-10-15] MEDS: LINACLOTIDE 145 MCG CAPSULE PO SCH (09:31)
[2018-10-15] MEDS: FUROSEMIDE 40 MG TABLET PO SCH (09:32)
[2018-10-15] MEDS: buPROPion 75 MG TABLET PO SCH ×2 (09:32→21:10)
[2018-10-15] MEDS: CHOLECALCIFEROL 5,000 UNIT TABLET PO SCH (09:32)
[2018-10-15] MEDS: MEMANTINE 5 MG TABLET PO SCH ×2 (09:32→21:10)
[2018-10-15] MEDS: fentaNYL 75 MCG/HR PATCH TRANSDERM SCH (09:32)
[2018-10-15] MEDS: PANTOPRAZOLE 40 MG TABLET PO SCH (09:32)
[2018-10-15] MEDS: POTASSIUM CHLORIDE 20 MEQ/15 ML UDCUP PO SCH (09:33)
[2018-10-15] MEDS: DICLOFENAC 1% GEL 100 GM TUBE TOP SCH ×2 (16:45→21:10)
[2018-10-15] MEDS: ENOXAPARIN 30 MG/0.3 ML SYRINGE SUBCUT SCH (21:10)
[2018-10-15] MEDS: LORazepam 2 MG/1 ML VIAL IV PRN (22:30)
[2018-10-16] MEDS: HYDROmorphone 2 MG/1 ML VIAL IV PRN ×3 (02:53→17:20)
[2018-10-16] MEDS: LORazepam 2 MG/1 ML VIAL IV PRN ×4 (02:53→21:55)
[2018-10-16] MEDS: LINACLOTIDE 145 MCG CAPSULE PO SCH (09:17)
[2018-10-16] MEDS: POTASSIUM CHLORIDE 20 MEQ/15 ML UDCUP PO SCH (09:17)
[2018-10-16] MEDS: PANTOPRAZOLE 40 MG TABLET PO SCH (09:18)
[2018-10-16] MEDS: FUROSEMIDE 40 MG TABLET PO SCH (09:18)
[2018-10-16] MEDS: MEMANTINE 5 MG TABLET PO SCH ×3 (09:18→21:51)
[2018-10-16] MEDS: CHOLECALCIFEROL 5,000 UNIT TABLET PO SCH (09:18)
[2018-10-16] MEDS: DICLOFENAC 1% GEL 100 GM TUBE TOP SCH ×4 (09:19→21:52)
[2018-10-16] MEDS: buPROPion 75 MG TABLET PO SCH ×3 (09:29→21:51)
[2018-10-16] MEDS: ALBUTEROL/IPRATROPIUM 3 ML NEB RESP TX PRN (11:05)
[2018-10-16] MEDS: ENOXAPARIN 30 MG/0.3 ML SYRINGE SUBCUT SCH (21:47)
[2018-10-17] MEDS: LORazepam 2 MG/1 ML VIAL IV PRN ×2 (00:35→06:25)
[2018-10-17] MEDS ORDERED: MORPHINE 4 MG/1 ML VIAL IV ONE ×2 (00:53→02:00)
[2018-10-17] MEDS ORDERED: MORPHINE 4 MG/1 ML VIAL IV PRN (01:16)
[2018-10-17 04:17] LABS: Basophils % 0.2 % (0.0-0.8); Eosinophils % 0.1 % (0.00-10.9); Hematocrit 33.7 VOL% (35.7-47.0); Hemoglobin 10.4 GM/DL (12.0-16.0); Immature Granulocytes Absolute 0.08 #; Lymphocytes # 0.3 10*3/uL (1.4-4.0); Lymphocytes % 3.1 % (21.3-54.2); Mean Corpuscular HGB Conc 30.9 GM/DL (32-36); Mean Corpuscular Volume 92.6 FL (87-102); Neutrophils % 88.6 % (38.7-73.9); Platelet Count 421 T/CUMM (130-400); Red Blood Count 3.64 MC/CUMM (3.8-5.5); Red Cell Distribution Width 15.6 % (9.3-17.3); White Blood Count 8.3 T/CUMM (4-12)
[2018-10-17 04:41] LABS: Hypochromasia Slight; Lymphocytes 3 % (20-55); Ovalocytes Slight; Platelet Estimate Adequate; Segmented Neutrophils 92 % (50-85); Total Cells Counted 100
[2018-10-17] MEDS ORDERED: NALOXONE 0.4 MG/ML VIAL IV PRN (08:35)
[2018-10-17] MEDS: FUROSEMIDE 40 MG TABLET PO SCH (10:28)
[2018-10-17] MEDS: MEMANTINE 5 MG TABLET PO SCH ×2 (10:28→22:19)
[2018-10-17] MEDS: LINACLOTIDE 145 MCG CAPSULE PO SCH (10:28)
[2018-10-17] MEDS: CHOLECALCIFEROL 5,000 UNIT TABLET PO SCH (10:29)
[2018-10-17] MEDS: DICLOFENAC 1% GEL 100 GM TUBE TOP SCH ×3 (10:29→22:20)
[2018-10-17] MEDS: PANTOPRAZOLE 40 MG TABLET PO SCH (10:29)
[2018-10-17] MEDS: buPROPion 75 MG TABLET PO SCH ×2 (10:29→22:20)
[2018-10-17] MEDS: POTASSIUM CHLORIDE 20 MEQ/15 ML UDCUP PO SCH (10:29)
[2018-10-17] MEDS: HYDROmorphone PCA 30 MG/30 ML SYRINGE IV SCH (11:05)
[2018-10-17 11:59] VITALS: BP 138/78
[2018-10-17] MEDS: ENOXAPARIN 30 MG/0.3 ML SYRINGE SUBCUT SCH (22:19)
[2018-10-18] MEDS: LORazepam 2 MG/1 ML VIAL IV PRN (05:15)
[2018-10-18] MEDS: LINACLOTIDE 145 MCG CAPSULE PO SCH (08:13)
[2018-10-18] MEDS: buPROPion 75 MG TABLET PO SCH (09:44)
[2018-10-18] MEDS: PANTOPRAZOLE 40 MG TABLET PO SCH (09:44)
[2018-10-18] MEDS: DICLOFENAC 1% GEL 100 GM TUBE TOP SCH ×3 (09:44→16:59)
[2018-10-18] MEDS: CHOLECALCIFEROL 5,000 UNIT TABLET PO SCH (09:44)
[2018-10-18] MEDS: MEMANTINE 5 MG TABLET PO SCH (09:44)
[2018-10-18] MEDS: POTASSIUM CHLORIDE 20 MEQ/15 ML UDCUP PO SCH (09:44)
[2018-10-18] MEDS: FUROSEMIDE 40 MG TABLET PO SCH (09:44)
[2018-10-18] MEDS: fentaNYL 75 MCG/HR PATCH TRANSDERM SCH (11:07)
[2018-10-18] MEDS: HYDROmorphone PCA 30 MG/30 ML SYRINGE IV SCH (15:55)
== END 2018-10-18 15:55 | disposition expired | DRG 392 ==
LOC: N.ED 15:03 → N.EDINP 20:07 → SUATTDRO 20:07 → N.4E 20:49
PROVIDERS: ADMIT Internal Medicine; ATTEND Internal Medicine Geriatric Medicine